=== PATIENT | female | born 1940 | race Caucasian/White ===

== ENCOUNTER 2017-11-07 16:30 | Emergency (ER) | payer SELFPAY, OTHER ==
[2017-11-07] MEDS: ONDANSETRON (ODT) 4 MG TAB ODT (20:24)
[2017-11-07] MEDS: HYDROCODONE/APAP (5/325) TAB PO (20:25)
== END 2017-11-07 22:56 | disposition home or self-care (01) ==
LOC: FTE 16:30
DX: M25.542 Pain in joints of left hand (principal); I10 Essential (primary) hypertension
CPT/HCPCS: 73110; 73110-LT; 73130-LT; 99283-25